=== PATIENT | female | born 1960 | race Asian ===

== ENCOUNTER → 2017-12-11 10:05 | Outpatient (CLI) | payer OTHER, SELFPAY ==
[2017-12-11 14:31] VITALS: BMI 35.4
== END ==
PROVIDERS: PCP Physician Assistant; Visit Provider Physician Assistant
DX: E66.9 Obesity, unspecified (principal); Z68.35 Body mass index [BMI] 35.0-35.9, adult
CPT/HCPCS: 97802

== ENCOUNTER → 2017-12-25 09:59 | Outpatient (CLI) | payer OTHER, SELFPAY ==
--- NOTE | 2017-12-25 11:50 | DIET.PN ---
Addendum entered by Elva Scanlon 02/11/18 10:39: Dx: Obesity, HTN, hyperlipidemia Original Note: Met for 1st F/U consultation Reports she has cut starchy foods - rice, taro, vegs -in half as suggested, and cut out all sweets, breads, rolls. Eating more non-starchy vegs. Substituted bananas for fresh pineapple and has a couple slices with each meal. Continues to monitor steps. Last week reached 10,000 to 19,000 steps 6 times with one low day at 4990 steps. Does sometimes feel unsatisfied after a meal and last week ate banana and an apple after dinner; once visited [employer] and had a small Frostie - then felt guilty. Is concerned about having family visit this weekend as they want to dine out at [employer]. Weight: 171.25# (4.5 # loss) Assessment: Pt making good progress. Has followed through with suggested changes to food choices and portions as well as increased physical activity. Losing at approx 2#/week, which is perfect. Intervention: Provided feedback on food choices over last 2 weeks. Provided ed on portion control for fruit and starchy food. Brainstormed ideas for successful family dinner out this weekend, including going to [employer] ahead of time to look over menu and decide what to order or choosing a different restaurant. Goals: Continue to monitor steps: goal of 10,000-15,000 5-6 times/week Continue to limits carbs/starchy foods Implement dining out strategies F/U 2 weeks
== END ==
PROVIDERS: PCP Physician Assistant; Visit Provider Physician Assistant
DX: E66.9 Obesity, unspecified (principal); I10 Essential (primary) hypertension; E78.5 Hyperlipidemia, unspecified
CPT/HCPCS: 97803

== ENCOUNTER → 2018-01-07 14:52 | Outpatient (CLI) | payer OTHER, SELFPAY ==
--- NOTE | 2018-01-07 15:58 | DIET.PN ---
Met for 2nd f/u consult Regine states last week was very bad r/t family visiting for 3 days with lots of eating and drinking, though she only drank one Dulce hard lemonade per day she still felt guilty. Did not exercise during this time and states no one would walk with her, though did not invite them. Continued to eat poorly after family left until today. Today started walking again and eating more conscientiously WEIGHT: 170 lb (my scale) ASSESSMENT: Pt feeling guilty re; going off plan during family visit. Was very evasive when trying to discuss events that led to poor choices and obviously very down on herself. Was surprized still lost approx 1 lb, though disappointed it wasn't 4 lbs again (2 lb/week goal) INTERVENTION: Provided education on strategies for keeping on track during social events and the importance of not berating one's self as it tends to prolong the binge of poor eating and not exercising: Mistakes are not mistakes if a lesson is learned. Provided ed on carb portions; measuring foods GOAL: return to step goals of 10,000 - 15,000 per day X 5-6X/wk Limit high carb/starchy foods. Pt wanted to start measuring. f/u 2 weeks
== END ==
PROVIDERS: PCP Physician Assistant; Visit Provider Physician Assistant
DX: E66.9 Obesity, unspecified (principal); I10 Essential (primary) hypertension; E78.5 Hyperlipidemia, unspecified
CPT/HCPCS: 97803

== ENCOUNTER → 2018-01-22 10:57 | Outpatient (CLI) | payer OTHER, SELFPAY ==
--- NOTE | 2018-01-22 12:02 | DIET.PN ---
Met for 3rd f/u States she is still struggling even with family being gone now. Has a lot of sodas left over from visit and has been drinking sugared soda as well as Frappacinos, as these are cold and refreshing when comes in from working outside. Also finding it more difficult reaching steps goal because she has so much yard work - has large yard with many plants. WEIGHT: 169# (down from 171.25 last visit; down 1 # from initial wt) ASSESSMENT: Making many excuses. Has lost 1.25# in 4 weeks; slow loss. Continues to decrease portions of meals, especially starchy foods and fruit. Adding in sugared beverages is a detriment to wt loss success. Even though steps are not as high as previous, continues to get in approx 10-12,000 daily and doing physical work in yard. INTERVENTION: Provided education on non-calorie cold beverages to substitute for sugared ones and the difference in metabolizing liquids carbs vs solid carbs. Strongly encouraged to get sugared beverages out of sight - save for another social event. Provided education on sugar subs (saccharin, aspartame, etc) vs stevia (natural plant) as she was afraid to use stevia. Suggested to try stair climbing for more intense work-out/steps GOALS: Sub non-caloried beverages for sugared ones Step: 10-12,000 steps daily Pt hopes to lose 3-6# by next meeting (3 weeks)
== END ==
PROVIDERS: PCP Physician Assistant; Visit Provider Physician Assistant
DX: E66.9 Obesity, unspecified (principal); I10 Essential (primary) hypertension; E78.5 Hyperlipidemia, unspecified
CPT/HCPCS: 97803

== ENCOUNTER → 2018-01-29 14:32 | Outpatient (CLI) | payer OTHER, SELFPAY ==
--- NOTE | 2018-01-29 | DI.MG.S_ITS ---
BILATERAL DIGITAL SCREENING MAMMOGRAM 3D/2D WITH CAD: 01/29/2018 CLINICAL: Routine screening. Family history of breast cancer. Comparison is made to exams dated: 12/07/2015 mammogram, 10/14/2014 mammogram, and 08/07/2012 mammogram - [facility]. The tissue of both breasts is heterogeneously dense. This may lower the sensitivity of mammography. Current study was also evaluated with a Computer Aided Detection (CAD) system. There is a benign calcification in the right breast. No significant masses, calcifications, or other findings are seen in either breast. There has been no significant interval change. IMPRESSION: BENIGN There is no mammographic evidence of malignancy. A 1 year screening mammogram is recommended. NOTE: For mammograms, a report in lay terms will be sent to the patient. Approximately 15% of breast malignancies will not be visualized mammographically. In the management of a palpable breast mass, a negative mammogram must not discourage biopsy of a clinically suspicious lesion. Electronically Signed By: Hyun ernst/cleopatra:01/29/2018 17:31:35 letter sent: Normal Exam ACR BI-RADS Category 2: Benign Finding(s) 3342F
== END ==
PROVIDERS: PCP Physician Assistant; Visit Provider Physician Assistant
DX: Z12.31 Encounter for screening mammogram for malignant neoplasm of breast (principal); E28.39 Other primary ovarian failure
CPT/HCPCS: 77063; 77067; 77080

== ENCOUNTER → 2018-02-12 14:16 | Outpatient (CLI) | payer OTHER, SELFPAY ==
--- NOTE | 2018-02-12 15:11 | DIET.PN ---
Met for f/u Is pleased to announce she bought a new shirt this week - a medium size instead of large. Needing smaller pants too. Has nearly completely gotten rid of rice in diet; substituting kale and other vegies. Continues to work at keeping exercise up, but has difficulty on work days meeting step goals as has to spend so much time taking care of garden this time of year. Had a birthday splurge with ice cream cake, but got back on track immediately. 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 Loser clothing suggests losing fat. Has more energy and feeling better - not craving sugar anymore. The [employer] code diet appears to advocate healthful fats and whole foods, so generally appears sound, though no details are available without purchase of books. INTERVENTION: Encouraged to continue current plan; keep exercise up as much as able; perservere, get back on track when strays. PLAN: F/u 5-6 weeks. Next wt goal 155#
== END ==
PROVIDERS: PCP Physician Assistant; Visit Provider Physician Assistant
DX: E66.9 Obesity, unspecified (principal); I10 Essential (primary) hypertension; E78.5 Hyperlipidemia, unspecified
CPT/HCPCS: 97803

== ENCOUNTER → 2018-03-19 10:55 | Outpatient (CLI) | payer OTHER, SELFPAY ==
--- NOTE | 2018-03-19 14:45 | DIET.PN ---
Regine is somewhat discouraged today. Has not made good progress since last visit. Attributes this to a few things: fitbit broke and felt lost; lost focus, started eating more starchy foods - spaghetti, was eating sugar free candy - only very small amount, but feels the sugar substitute used to kaya candy caused inflammation that affected knee. DX: Obesity, HTN, hyperlipidemia WT: 166.5# ASSESSMENT: Wt up 08/07# since last visit 1 mo ago. Appears to be comfort eating r/t knee pain and slipped back into old habits. Appears ready to re-start INTERVENTION: Provided support for starting again w/tracking intake; tracking steps (has new fitbit). Plans to start going to base gym again- discussed type of classes that may benefit without causing big strain on knees. Strongly encouraged to get off the starchy foods again. Will f/u 1 mo
== END ==
PROVIDERS: PCP Physician Assistant; Visit Provider Physician Assistant
DX: E66.9 Obesity, unspecified (principal); I10 Essential (primary) hypertension; E78.5 Hyperlipidemia, unspecified
CPT/HCPCS: 97803

== ENCOUNTER → 2018-04-24 15:00 | Outpatient (CLI) | payer OTHER, SELFPAY | PROVIDERS: PCP Physician Assistant | DX: Z23 Encounter for immunization (principal) | CPT/HCPCS: 90471; 90686 ==

== ENCOUNTER → 2018-04-30 14:54 | Outpatient (CLI) | payer OTHER, SELFPAY ==
--- NOTE | 2018-04-30 15:57 | DIET.PN ---
Met for 7th consultation Reports lost motivation because lost a friend to a stroke this month. The friend worked w/spouse and she knows family. Having a rough time dealing with it. Stopped walking and eating well. DX: obesity, HTN, hyperlipidemia WT 168# up from last vist by 3#; still down from initial visit by 7# ASSESSMENT: Emotional eater. Having difficult time coping. Feels she's ready now to restart (again). STarted walking yesterday. Did get a new fitbit since last visit so can start using that again. INTERVENTION: Provided listening ear; suggested counseling if doesn't get over this depressive episode. Suggest using ayla for tracking food intake - I think pt needs more structure to keep with plan PLAN/GOAL: Tract steps again - 10,000-15,000/day goal Track PO intake - has MyFitnesspal on phone already. Set aside time for meditation//prayer/addressing issues that are bothering her (1/2hr?) and then move on w/day F/U 1 mo
== END ==
PROVIDERS: PCP Physician Assistant; Visit Provider Physician Assistant
DX: E66.9 Obesity, unspecified (principal); I10 Essential (primary) hypertension
CPT/HCPCS: 97803

== ENCOUNTER → 2018-06-02 09:50 | Outpatient (CLI) | payer OTHER, SELFPAY ==
--- NOTE | 2018-06-02 11:05 | DIET.PN ---
Met for 8th consultation. Regine brings in her phone wanting instructions on how to log into [employer]. Apparently her spouse registered for her but she hasn't been able to use it. Has not recorded intake at all. Were unable to log into [employer] pal, so tried Lose It meli, which she also already had. Spent 1/2 hour instructing on use. Gets frustrated and gives up easily. Discussed keeping a written log, but wants to try the meli now. Meli also connects to her Fitbit to track exercise. Weight: 167.5# (down about 1/2 #) Exercise: Walking, treadmill - 30min 5X/wk for last 4 weeks Food Intake: Back to eating white rice, still has sodas at home that temp her. Basically falling back into old habits. States she plans now to just eat turkey and salad. Assessment: Regine has not made good lifestyle changes. Continues to have a diet mentality. Has lost very little wt in last 3 months. Intervention: Strongly recommended pt change her attitude and committ to making lasting changes, getting rid of white rice, starchy foods and getting back to lean sources of protein and vegetables w/minimum of whole grains for starchy food choices. Plan: Track food intake on Lose It meli (to try for at least 2 weeks to get familiar before giving up) If tracking meli isn't working well, keep written food intake record Continue exercise 5X/wk - bump up to 1 hour per session.
== END ==
PROVIDERS: PCP Physician Assistant; Visit Provider Physician Assistant
DX: E66.9 Obesity, unspecified (principal)
CPT/HCPCS: 97803

== ENCOUNTER → 2018-07-09 09:57 | Outpatient (CLI) | payer OTHER, SELFPAY ==
--- NOTE | 2018-07-10 06:33 | DIET.PN ---
Met for f/u consultation. Regine is feeling very good about herself today; very postive and says she is back on track. Reports changing her attitude: realizes her insurance is paying for consultations to help her get healthier and she needs to respect that. Did well at and plans the same for [employer], emphasizing other aspects of the holidays besides food. For she volunteered at community gathering. For [employer] will do same and focus on giving to those in need. Not walking as much r/t cold weather, but doing exercise routines using [employer] videos. Most days is meeting steps goal of 10,000 to 15,000. Did not use phone ayla for tracking intake - just isn't a techy person. Wants to keep written record but doesn't have info on nutrients Dx: obesity, HTN, hyperlipidemia Wt 164.5# Assessment: Making progress again; has better attitude. Eating well; minimizing carbs/maximizing whole foods Intervention: REinforced the good work Regine is doing. Provided an exhange booklet as this provides calorie and carb info for many foods. Instructed in its use. Plan: Regine's goal is to lose another 8# by our next appt.
== END ==
PROVIDERS: PCP Physician Assistant; Visit Provider Physician Assistant
DX: E66.9 Obesity, unspecified (principal)
CPT/HCPCS: 97803

== ENCOUNTER → 2018-08-20 10:53 | Outpatient (CLI) | payer OTHER, SELFPAY ==
--- NOTE | 2018-08-21 09:46 | DIET.PN ---
Met for f/u on 08/20 - late note Regine injured her leg around the knee/calf so walking has been limited for a few weeks. It still hurts but improving. It sounds like a pulled muscle/tendon? As a result, states she has not eaten well. Asking how long do I need to keep a food record? Does it need to be 2 weeks? Forever? Kept food record for only about 2 weeks after our last meeting; forgot to bring records. Admits she was eating poorly during that time as well - too much rice and bread & this was before injuring her leg. Dx: Obesity, HTN, hyperlipidemia Wt: deffered Assessment: Pt has many excuses for difficulty following a healthy lifestyle. Review of current pattern of work and eating, pt has reverted to old habits - and not eating more than one proper meal as well as eating a lot of carbs. Intervention: confronted pt w/her lack of commitment. Pointed out that the food record is more an issue of commitment and accountability than just an exercise to please me and have been shown to be an effective tool. Emphasized it's up to Regine to make the choices. Suggested a somewhat extreme diet plan, using a keto template. This is to help regulate appetite and stave off carb cravings. Gave sample menu and outlined how that menu may fit into her schedule of eatinAM (after work): breakfast 1:30PM(after sleeping/before work): Dinner 10PM (while driving to work): Snack 2:00AM (at work): Lunch Plan: Food record, Use keto plan, F/U 1 mo
== END ==
PROVIDERS: PCP Physician Assistant; Visit Provider Physician Assistant
DX: E66.9 Obesity, unspecified (principal); I10 Essential (primary) hypertension; E78.5 Hyperlipidemia, unspecified
CPT/HCPCS: 97803

== ENCOUNTER → 2018-10-01 09:56 | Outpatient (CLI) | payer OTHER, SELFPAY ==
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
== END ==
PROVIDERS: PCP Physician Assistant; Visit Provider Physician Assistant
DX: E66.9 Obesity, unspecified (principal); I10 Essential (primary) hypertension; E78.5 Hyperlipidemia, unspecified
CPT/HCPCS: 97803

== ENCOUNTER → 2018-11-17 10:04 | Outpatient (CLI) | payer OTHER, SELFPAY ==
--- NOTE | 2018-11-17 10:43 | DIET.PN ---
Met for f/u consultation; may be final consult - pt not certain what date referral authorization ends. We've been meeting for 1 year and I suspect this is the last approve month. Regine reports she's exercising more again; knee is better. Working out (treadmill, etc) for approx 1 hour 5/week and tracking steps, with most days reaching 10,000 steps. Continues to eat a lot of non-starchy vegs, limits rice to 1 cup servings approx 4/week; avoiding breads and sweets. Does allow one sweet treat: small size bites of niurka covered dried sade: two/day. Continues to keep other sweets out of diet, including sodas. Reports feeling better; has more energy and is okay with maintaining wt but continuing to eat and exercise to be more healthy. O- Dx: obesity, HTN, hyperlipidemia Wt 167# Wt previous consult: 166.75# Assessment: Regine has learned a lot per her report; made good changes in lifestyle. Weight is maintaining, which is progress, as she was gaining prior to our consultations. Appears to have better control of emotional eating and how to re-gain control when getting off track of personal goals. Intervention: Reviewed what pt has learned and incorperated into lifestyle. Reinforced continuance of healthy lifestyle habits from here forward. Plan: May call for f/u if insurance still covering appts; otherwise, plans to continue eating well and exercising.
== END ==
PROVIDERS: PCP Physician Assistant; Visit Provider Physician Assistant
DX: E66.9 Obesity, unspecified (principal); I10 Essential (primary) hypertension; E78.5 Hyperlipidemia, unspecified
CPT/HCPCS: 97803

== ENCOUNTER → 2019-01-21 07:22 | Outpatient (CLI) | payer OTHER, SELFPAY ==
[2019-01-21 08:40] LABS: Alanine Aminotransferase 40 IU/L (9-52); Albumin 4.5 g/dL (3.5-5.0); Albumin Globulin Ratio 1.6 (1.0-2.8); Alkaline Phosphatase 70 U/L (38-126); Aspartate Aminotransferase 29 IU/L (14-36); Blood Urea Nitrogen 21 mg/dL (7-17); Calcium 10.1 mg/dL (8.4-10.2); Carbon Dioxide 30 mmol/L (22-32); Chloride 102 mmol/L (98-107); Cholesterol 189 mg/dL (140-199); Estimated Glomerular Filt Rate > 60.0 mL/min (>60); Globulin 2.8 g/dL (1.7-4.1); Glucose 103 mg/dL (80-110); HDL Cholesterol 49 mg/dL (40-60); HEMOLYSIS < 15 (0-50); LDL Cholesterol Calculated 117 mg/dL (<100); Potassium 4.3 mmol/L (3.4-5.1); Sodium 141 mmol/L (137-145); Total Protein 7.3 g/dL (6.3-8.2); Triglycerides 115 mg/dL (35-150)
[2019-01-21 09:03] LABS: Creatinine Urine Random 212.3 mg/dL
[2019-01-21 09:08] LABS: Microalbumi Creatinin Ratio Ur 8.9 ug/mg CR (<30); Microalbumin Urine Random 1.9 mg/dL (0-1.6)
== END ==
PROVIDERS: PCP Physician Assistant; Visit Provider Physician Assistant
DX: E78.5 Hyperlipidemia, unspecified (principal); I10 Essential (primary) hypertension
CPT/HCPCS: 36415; 80053; 80061; 82043; 82570

== ENCOUNTER → 2019-01-28 07:38 | Outpatient (CLI) | payer OTHER, SELFPAY ==
[2019-02-01 16:15] LABS: Fecal Immunochemical Test NOT DETECTED (NOT DETECTED)
== END ==
PROVIDERS: PCP Physician Assistant; Visit Provider Physician Assistant
DX: Z12.11 Encounter for screening for malignant neoplasm of colon (principal)
CPT/HCPCS: 82274

== ENCOUNTER 2019-04-24 09:11 | Emergency (ER) | payer OTHER, SELFPAY ==
[2019-04-24 09:35] VITALS: BP 172/86; PULSE 79; RESP 18; TEMP 36.7; O2SAT 98
[2019-04-24 09:37] VITALS: PULSE 80
--- NOTE | 2019-04-24 09:57 | ED.UPPEXIN ---
HPI - Extremity Injury (Upper) General Chief Complaint: Extremity Injury, Upper Stated Complaint: bit by something, hand swelling Time Seen by Provider: 04/24/19 09:17 Source: patient Mode of arrival: Ambulatory Limitations: no limitations History of Present Illness HPI narrative: 59-year-old female nonsmoker presents to the emergency department the chief complaint of an insect bite to her left ring finger this morning while working in the garden. She developed swelling, redness and pain which has worsened and now she cannot remove her wedding band. She denies any numbness or tingling. She has decreased range of motion secondary to pain and mechanical obstruction due to swelling. Patient denies any systemic findings such as tongue, lip or throat swelling nor any rash or difficulty with breathing MD complaint: injury to: left Onset (ago): hour(s) Other injuries: none Handedness: right Place: outdoors Severity: mild Relieving factors: none Exacerbating factors: none Context: other Associated symptoms: denies other symptoms Treatments prior to arrival: cold therapy Related Data Home Medications Medication Instructions Recorded Confirmed CA PANTOTHENATE/FOLIC ACID/VIT 1 tab PO QDAY #0 07/20/12 01/25/19 (MULTIVITAMIN) aspirin 81 mg PO QDAY #0 10/31/16 01/25/19 [GLUTATHIONE] 500 mg PO QDAY #0 11/06/17 01/25/19 Ocuvite 1 cap PO DAILY 01/25/19 01/25/19 ascorbate calcium (vitamin C) 500 500 mg PO DAILY PRN 01/25/19 01/25/19 mg tablet Previous Rx's Medication Instructions Recorded losartan 50 mg-hydrochlorothiazide 1 tab PO QDAY #90 tab 01/25/19 12.5 mg tablet pravastatin 40 mg tablet 40 mg PO HS #90 tab 01/25/19 Allergies Allergy/AdvReac Type Severity Reaction Status Date / Time amoxicillin [AMOXICILLIN] AdvReac Severe HIVES IN Unverified 01/25/19 09:02 CHEST & FACE azithromycin AdvReac Severe CHEST Unverified 01/25/19 09:02 PAIN, VOMITING, DIZZINESS clavulanic acid AdvReac Severe HIVES IN Unverified 01/25/19 09:02 [From AUGMENTIN] CHEST & FACE Penicillins [PENICILLINS] AdvReac Severe HIVES IN Unverified 01/25/19 09:02 CHEST & FACE hydrocodone AdvReac Intermediate NAUSEA AND Unverified 01/25/19 09:02 DIZZINESS tobramycin [TOBRAMYCIN] AdvReac Intermediate Cause eye Unverified 01/25/19 09:02 to be very red, inflammed and hard to open lisinopril AdvReac Mild DRY COUGH Unverified 01/25/19 09:02 Review of Systems Constitutional Constitutional: Denies chills, Denies fatigue, Denies fever(s), Denies frequent falls, Denies lethargy and Denies weakness Eyes Eyes: Denies change in vision, Denies eye discharge, Denies irritation and Denies loss of vision ENT Ears, Nose, Mouth, and Throat: Denies change in voice, Denies dizziness, Denies neck pain, Denies sore throat and Denies throat swelling Cardiovascular Cardiovascular: Denies chest pain, Denies irregular heart rhythm, Denies lightheadedness, Denies palpitations, Denies dyspnea, Denies dyspnea on exertion and Denies orthopnea Respiratory Respiratory: Denies cough, Denies dyspnea, Denies dyspnea on exertion and Denies wheezing Gastrointestinal Gastrointestinal: Denies abdominal pain, Denies change in bowel habits, Denies diarrhea, Denies nausea and Denies vomiting Genitourinary Genitourinary: Denies hematuria, Denies flank pain, Denies urinary incontinence and Denies urinary urgency Musculoskeletal Musculoskeletal: Denies back pain, Reports joint swelling, Reports limited range of motion, Denies muscle weakness, Denies neck pain, Denies numbness and Denies tingling Integumentary/Breasts Skin/Breast: Denies pruritus, Reports erythema, Denies rash, Reports skin pain, Reports skin swelling and Denies wounds Neurologic Neurologic: Denies behavioral changes, Denies confusion, Denies dizziness, Denies frequent falls, Denies loss of vision, Denies numbness, Denies tingling and Denies weakness Psychiatric Psychiatric: Denies anxiety, Denies behavioral changes, Denies confusion, Denies depression, Denies homicidal ideation and Denies suicidal ideation Endocrine Endocrine: Denies fatigue, Denies flushing and Denies palpitations Hematologic/Lymphatic Hematologic/Lymphatic: Denies easy bruising Allergic/Immunologic Allergic/Immunologic: Denies urticaria, Denies throat swelling and Denies wheezing PFSH Surgical History Status post breast reduction Status post delivery Family History (Updated 09/18/15 @ 00:00 by Conversion Provider) Mother Hypertension Social History Smoking Status: Never smoker second hand exposure: No alcohol intake: current (a couple of times a year on rare occasions.) substance use type: does not use Family History Mother Hypertension Social History Smoking Status: Never smoker second hand exposure: No alcohol intake: current (a couple of times a year on rare occasions.) substance use type: does not use Exam Narrative Exam Narrative: GEN: AOx3 and in mild distress EYES: Pupils are equal, round, and reactive to light and accommodation. Extraoccular muscles are intact bilaterally. There is no subconjunctival hemorrhage or exudate. ENT: No tongue, lip or throat swelling CHEST: Lungs are clear to auscultation bilaterally and free of wheezes, rales, or rhonchi. Heart rate is regular rhythm, there are no murmurs, clicks, rubs, or gallops. There is no chest wall tenderness. ABD: Abdomen is soft and nontender. There is no guarding or rebound. Bowel sounds are normal in all 4 quadrants. There is no mass or organomegaly. EXT: Left ring finger is edematous and erythematous with good cap refill and sensation. Unable to slide ring off. Nursing to cut ring SKIN: Warm, pink, and dry. No erythema or rash Initial Vital Signs Initial Vital Signs: Vital Signs Temperature 98.0 F 04/24/19 09:35 Pulse Rate 79 04/24/19 09:35 Respiratory Rate 18 04/24/19 09:35 Blood Pressure 172/86 H 04/24/19 09:35 Pulse Oximetry 98 04/24/19 09:35 Course Vital Signs Vital signs: Vital Signs - 8 hr 04/24/19 09:35 04/24/19 09:37 Temperature 98.0 F Pulse Rate 79 Pulse Rate [Left Radial] 80 Respiratory Rate 18 Blood Pressure 172/86 H Pulse Oximetry 98 Discharge Plan Departure Patient Disposition: Home Clinical Impression: Injury of left ring finger Qualifiers: Encounter type: initial encounter Qualified Code(s): S69.92XA - Unspecified injury of left wrist, hand and finger(s), initial encounter Insect bite Qualifiers: Encounter type: initial encounter Site of insect bite: finger Finger: ring finger Laterality: right Qualified Code(s): S60.464A - Insect bite (nonvenomous) of right ring finger, initial encounter Discharge Date/Time: 04/24/19 10:18 Instructions: DI for Insect Bites and Stings Activity Restrictions/Additional Instructions: *You have been diagnosed with [insect bite with local reaction and swelling to ring finger with ring removal] *What to do: *Take medications as directed: Tylenol or Motrin for aches and pains *Follow up with your primary care provider in 2-3 days, call for an appointment. Let them know you were seen in the Emergency Department and that we ask that you be seen in follow up *Return to ER if you should have any new, worsening or concerning symptoms Prescriptions: No Action CA PANTOTHENATE/FOLIC ACID/VIT (MULTIVITAMIN) 1 tab PO QDAY Qty: 0 RF: 0 aspirin 81 MG tablet,delayed release (DR/EC) 81 mg PO QDAY Qty: 0 RF: 0 [GLUTATHIONE] 500 mg PO QDAY Qty: 0 RF: 0 ascorbate calcium (vitamin C) 500 mg tablet 500 mg PO DAILY PRNRF: 0 Ocuvite 1 cap PO DAILY RF: 0 losartan-hydrochlorothiazide [Hyzaar] 50-12.5 mg tablet 1 tab PO QDAY Qty: 90 RF: 3 pravastatin 40 mg tablet 40 mg PO HS Qty: 90 RF: 3 Referrals: Drea Leroy PA-C [Primary Care Provider] -
== END 2019-04-24 10:18 | disposition home or self-care (01) ==
PROVIDERS: Emergency Provider Emergency Medicine; PCP Physician Assistant
DX: S60.465A Insect bite (nonvenomous) of left ring finger, initial encounter (principal)
CPT/HCPCS: 99282

== ENCOUNTER → 2019-05-20 12:39 | Outpatient (CLI) | payer OTHER, SELFPAY | PROVIDERS: PCP Physician Assistant | DX: Z23 Encounter for immunization (principal) | CPT/HCPCS: 90471; 90686 ==

== ENCOUNTER → 2020-05-09 18:56 | Outpatient (CLI) | payer OTHER, SELFPAY | PROVIDERS: PCP Physician Assistant; Referring Provider Internal Medicine; Visit Provider Internal Medicine | DX: Z23 Encounter for immunization (principal) | CPT/HCPCS: 90471; 90686 ==

== ENCOUNTER 2024-03-18 12:42 | Emergency (ER) | payer OTHER, MEDICARE, SELFPAY ==
[2024-03-18] VITALS (38 sets, daily range): BP systolic 170–235; BP diastolic 70–116; PULSE 56–104; RESP 11–31; TEMP 36.6; O2SAT 93–100; BMI 33.0
--- NOTE | 2024-03-18 12:49 | DI.CT.S_ITS ---
PROCEDURE: CT STROKE INDICATIONS: code stroke TECHNIQUE: Noncontrast 4.5 mm thick angled axial sections acquired from the foramen magnum to the vertex, with coronal reformats. For radiation dose reduction, the following was used: automated exposure control, adjustment of mA and/or kV according to patient size. COMPARISON: None. FINDINGS: Image quality: Diagnostic. CSF spaces: Basal cisterns are patent. No extra-axial fluid collections. The ventricles are symmetric in size and shape. Brain: No intracranial bleeds or masses. There is cerebral volume loss for age, with resultant ventricular and sulcal prominence. There are periventricular and deep white matter chronic small vessel ischemic changes. There is intracranial internal carotid artery atherosclerosis. Skull and face: Calvarium and visualized facial bones appear intact, without suspicious lesions. Sinuses: Visualized sinuses and mastoids are clear. IMPRESSION: No acute intracranial pathology. Comment: Findings were discussed with Dr. Hammond on 03/18/2024 at 1311 hours. This study fulfills neurological imaging criteria for inclusion or exclusion of acute stroke therapies based on available published neurological guidelines. Dictated by: Tahir Romero M.D. on 03/18/2024 at 13:01 Approved by: Tahir Romero M.D. on 03/18/2024 at 13:02
--- NOTE | 2024-03-18 12:50 | DI.CT.S_ITS ---
PROCEDURE: CT ANGIO HEAD AND NECK INDICATIONS: code stroke TECHNIQUE: After the administration of intravenous contrast, 1 mm thick sections acquired from the aortic arch through the [place] of [place]. 3-dimensional kikbcbz-zqufpljvm-fqjysnhbsp (MIP) and/or volume rendering reformats were acquired of the central intracranial vasculature and neck separately. For radiation dose reduction, the following was used: automated exposure control, adjustment of mA and/or kV according to patient size. COMPARISON: [facility], CT, CT STROKE, 03/18/2024, 12:53. FINDINGS: Image quality: Diagnostic. BRAIN: CSF spaces: Ventricles are normal in size and shape. Basal cisterns are patent. No extra-axial fluid collections. Brain: Accompanying CT head is unremarkable. Skull and face: Calvarium and facial bones appear intact, without suspicious lesions. Orbits appear normal. Sinuses: Sinuses and mastoids are clear. HEAD CT ANGIOGRAPHY: Anterior circulation: Intracranial internal carotid arteries are normal in size and flow. The flow within the paired anterior cerebral arteries is normal and symmetric. The flow within the middle cerebral arteries is normal and symmetric. The anterior communicating artery is seen. No aneurysms are seen. Posterior circulation: Visualized portions of the vertebral arteries demonstrate normal caliber, and join to form a normal appearing basilar artery. Flow within the posterior cerebral arteries is normal and symmetric. No aneurysms are seen. NECK CT ANGIOGRAPHY: Carotid system: The great vessels demonstrate a conventional anatomy as they arise from the aortic arch. The origins of the common carotid arteries appear patent. The common carotid arteries demonstrate normal caliber and courses. The bifurcation regions are both widely patent. The internal carotid arteries demonstrate normal calibers and courses. Posterior circulation: The origins of the vertebral arteries both appear widely patent. The more superior extracranial portions of both vertebral arteries also demonstrate normal courses and calibers. They join to form a normal appearing basilar artery. Soft tissues: Visualized neck soft tissues demonstrate no suspicious abnormalities. Question small pulmonary embolus, left basilar pulmonary artery, most inferior image, image 333 of series 4. There is also question pulmonary embolus in the lingular pulmonary artery. Reference image 330 of series 4. Bones: No suspicious bony lesions. Visualized cervical spine appears normally aligned. IMPRESSION: No significant intracranial arterial abnormality is seen. No significant abnormality is seen within the arteries of the neck. Question small peripheral left-sided pulmonary emboli Comment: Findings were discussed with Dr. Hammond at the time of study dictation on from 03/18/2024 at 1410 hours. Any quantitative measurements of stenosis were performed using NASCET criteria. Dictated by: Tahir Romero M.D. on 03/18/2024 at 14:06 Approved by: Tahir Romero M.D. on 03/18/2024 at 14:14
--- NOTE | 2024-03-18 12:50 | EKG_ITS ---
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
[2024-03-18 13:03] LABS: Add Manual Diff / Slide Review NO; Basophils Absolute Auto 100 /uL (0-100); Basophils Percent Auto 0.6 % (0-2); Eosinophils Absolute Auto 400 /uL (0-450); Eosinophils Percent Auto 4.4 % (2-4); Hematocrit 40.6 % (36-46); Hemoglobin 13.4 g/dL (12.0-16.0); Lymphocytes Absolute Auto 3700 /uL (1100-4500); Lymphocytes Percent Auto 39.7 % (25-40); Mean Corpuscular HGB Conc 33.1 % (30-36); Mean Corpuscular Hemoglobin 28.4 PG (26-34); Mean Corpuscular Volume 85.7 fL (80-100); Monocytes Absolute Auto 500 /uL (0-900); Monocytes Percent Auto 5.8 % (3-14); Neutrophils Absolute Auto 4600 /uL (1500-7000); Neutrophils Percent Auto 49.5 % (50-75); Platelet Count 313 X10^3/uL (150-400); Red Blood Cell Count 4.74 X10^6/uL (4.0-5.2); Red Cell Distribution Width 14.2 % (11.6-14.8); White Blood Cell Count 9.3 X10^3/uL (4.5-11.0)
[2024-03-18] MEDS: LABETALOL 20 MG/4 ML SYRINGE 10 MG IV (13:05)
[2024-03-18] MEDS: SODIUM CHLORIDE 0.9% 1,000 ML 125 ML IV (13:06)
[2024-03-18 13:10] LABS: INR 0.9 (0.9-1.3); Prothrombin Time 10.6 SECONDS (9.4-12.5)
--- NOTE | 2024-03-18 13:11 | ED_ITS ---
HPI - Neuro Symptoms/Deficit General Chief Complaint: Neuro Symptoms/Deficit Stated Complaint: feels like she's having stroke Time Seen by Provider: 03/18/24 12:48 Source: patient Mode of arrival: Ambulatory History of Present Illness HPI Narrative: 64-year-old female history of high blood pressure arrived by private vehicle for evaluation of feeling anxious, palpitations, dry mouth, tingling on her tongue and potentially some issues with dilating phone number on her phone. States she was at her normal state of health. She did work last evening so she has been awake for approximately 20 hours. She went to the bank. She was driving home from the bank she has sudden onset of symptoms at approximately 1.5 hours prior to arrival here in the ER. She states she did feel anxious at the time of the onset of the symptoms. She feels less anxious now. She feels like her palpitations have improved as well. She does have a history of high blood pressure. States her blood pressure normally runs in the 130s at home. Not on anticoagulation. On Anticoagulants: No (asa) Related Data Home Medications Medication Instructions Recorded Confirmed CA PANTOTHENATE/FOLIC ACID/VIT 1 tab PO QDAY ##0 07/20/12 01/25/19 (MULTIVITAMIN) aspirin 81 mg tablet,delayed 81 mg PO QDAY ##0 10/31/16 01/25/19 release [GLUTATHIONE] 500 mg PO QDAY ##0 11/06/17 01/25/19 Ocuvite 1 cap PO DAILY 01/25/19 01/25/19 ascorbate calcium (vitamin C) 500 500 mg PO DAILY PRN 01/25/19 01/25/19 mg tablet Previous Rx's Medication Instructions Recorded losartan 50 mg-hydrochlorothiazide 1 tab PO QDAY #90 tabs 01/25/19 12.5 mg tablet (Hyzaar) pravastatin 40 mg tablet 40 mg PO HS #90 tabs 01/25/19 hydrochlorothiazide 12.5 mg tablet 12.5 mg PO DAILY #90 tabs 07/30/19 losartan 50 mg tablet 50 mg PO DAILY #90 tabs 07/30/19 Allergies Allergy/AdvReac Type Severity Reaction Status Date / Time amoxicillin [AMOXICILLIN] AdvReac Severe HIVES IN Verified 03/18/24 12:55 CHEST & FACE azithromycin AdvReac Severe CHEST Verified 03/18/24 12:55 PAIN, VOMITING, DIZZINESS clavulanic acid AdvReac Severe HIVES IN Verified 03/18/24 12:55 [From AUGMENTIN] CHEST & FACE Penicillins [PENICILLINS] AdvReac Severe HIVES IN Verified 03/18/24 12:55 CHEST & FACE hydrocodone AdvReac Intermediate NAUSEA AND Verified 03/18/24 12:55 DIZZINESS tobramycin [TOBRAMYCIN] AdvReac Intermediate Cause eye Verified 03/18/24 12:55 to be very red, inflammed and hard to open lisinopril AdvReac Mild DRY COUGH Verified 03/18/24 12:55 Review of Systems Review of Systems ROS Unobtainable: All systems reviewed & are unremarkable except as noted in HPI and below Hematologic/Lymphatic On Anticoagulants: No (asa) Patient History Surgical History Status post breast reduction Status post delivery Family History Mother Hypertension Social History Smoking Status: Never smoker second hand exposure: No alcohol intake: current (a couple of times a year on rare occasions.) substance use type: does not use Smoking Status: Never smoker alcohol intake frequency: other Substance Use Type: does not use Exam Initial Vital Signs Initial Vital Signs: Vital Signs Temperature 97.8 F 03/18/24 12:42 Pulse Rate 104 H 03/18/24 12:42 Respiratory Rate 15 03/18/24 12:42 Blood Pressure 232/100 H 03/18/24 12:42 Pulse Oximetry 99 03/18/24 12:42 Oxygen Delivery Method Room Air 03/18/24 12:42 Const General: cooperative, comfortable and No ill appearing [facility] Head: normal to inspection and normocephalic Resp Effort & Inspection: normal respiratory effort Auscultation: clear to auscultation bilaterally Cardio Rate: regular rate Rhythm: regular rhythm GI Inspection: normal to inspection and non-distended Palpation: soft, No firm and No tender Neuro General: patient alert, patient awake, patient oriented x3 and moves all extremities Cranial Nerves: CN's II-XI intact bilaterally Cognition: normal cognition Speech: speech normal Motor: muscle tone normal throughout Sensory Exam: no sensory deficits noted Extrem General: capillary refill normal Scores GCS Tank coma scale eye opening: Spontaneous [place] coma scale verbal response: Orientated Tank coma scale motor response: Obey commands Tank coma scale total score: 15 NIH Stroke Scale Level of Conciousness: Alert, keenly responsive Ask month/age: Answers both questions correctly. Open/close eyes, close hand: Performs both tasks correctly Best gaze horizontal: Normal Visual josue: No visual loss Facial palsy: Normal symetrical movement Left arm drift: No drift for full 10 sec Right arm drift: No drift for full 10 sec Left leg drift: No drift for full 5 sec Right leg drift: No drift for full 5 sec Limb ataxia: Absent Sensory on face/arms/legs: Normal, no sensory loss Best language: No aphasia, normal Dysarthria: Normal Extinction or inattention: No abnormality Total NIH Stroke scale score: 0 Course Orders Ordered: ED Orders 03/18/24 12:49 CT Stroke Stat 03/18/24 12:50 CT angio head and neck Stat Complete Blood Count AUTO DIFF Stat Comprehensive Metabolic Panel Stat Ethanol (ETOH) Stat Lipase Stat Magnesium Stat PTT Partial Thromboplastin Riccardo Stat Prothrombin Time INR Stat Troponin & CK Cardiac Panel Stat EKG-12 Lead Stat 03/18/24 14:19 Urine Microscopic Stat 03/18/24 16:06 CT angio chest PE protocol Stat Sodium Chloride (Normal Saline 0.9%) 1,000 mls @ 125 mls/hr IV CONT BRY Last Admin: 03/18/24 13:06 Dose: 125 mls/hr Documented By: YANNICK Discontinued Medications Acetaminophen (Acetaminophen 325 Mg Tablet) 650 mg PO NOW ONE Stop: 03/18/24 16:07 Last Admin: 03/18/24 16:42 Dose: 650 mg Documented By: MARISA Amlodipine Besylate (Amlodipine 5 Mg Tablet) 10 mg PO NOW ONE Stop: 03/18/24 18:32 Labetalol HCl (Labetalol 20 Mg/4 Ml Syringe) 10 mg IV NOW ONE Stop: 03/18/24 12:57 Last Admin: 03/18/24 13:05 Dose: 10 mg Documented By: YANNICK Vital Signs Vital signs: Vital Signs - 8 hr 03/18/24 12:42 03/18/24 12:46 03/18/24 12:47 Temperature 97.8 F Pulse Rate 104 H 104 H Respiratory Rate 15 11 L Blood Pressure 232/100 H Pulse Oximetry 99 93 97 Oxygen Delivery Method Room Air 03/18/24 12:47 03/18/24 13:01 03/18/24 13:02 Temperature Pulse Rate 95 H Respiratory Rate 17 Blood Pressure 232/108 H 201/86 H Pulse Oximetry 100 Oxygen Delivery Method 03/18/24 13:02 03/18/24 13:05 03/18/24 13:16 Temperature Pulse Rate 95 H 93 H Respiratory Rate 22 Blood Pressure 201/86 H 201/84 H Pulse Oximetry 98 Oxygen Delivery Method 03/18/24 13:16 03/18/24 13:25 03/18/24 13:26 Temperature Pulse Rate 68 65 Respiratory Rate 22 28 H Blood Pressure 171/72 H Pulse Oximetry 98 99 Oxygen Delivery Method 03/18/24 13:26 03/18/24 13:30 03/18/24 13:30 Temperature Pulse Rate 64 Respiratory Rate 25 H Blood Pressure 201/83 H 197/85 H Pulse Oximetry 99 Oxygen Delivery Method 03/18/24 13:45 03/18/24 13:45 03/18/24 14:00 Temperature Pulse Rate 62 Respiratory Rate 26 H Blood Pressure 219/91 H 196/86 H Pulse Oximetry 98 Oxygen Delivery Method 03/18/24 14:00 03/18/24 14:11 03/18/24 14:19 Temperature Pulse Rate 61 Respiratory Rate 23 Blood Pressure 196/86 H 202/84 H Pulse Oximetry 98 Oxygen Delivery Method 03/18/24 14:19 03/18/24 14:30 03/18/24 14:30 Temperature Pulse Rate 66 61 Respiratory Rate 25 H 28 H Blood Pressure 194/70 H Pulse Oximetry 98 98 Oxygen Delivery Method 03/18/24 14:45 03/18/24 14:45 03/18/24 15:00 Temperature Pulse Rate 63 67 Respiratory Rate 27 H Blood Pressure 188/84 H Pulse Oximetry 98 99 Oxygen Delivery Method 03/18/24 15:01 03/18/24 15:01 03/18/24 16:07 Temperature Pulse Rate 70 Respiratory Rate 26 H Blood Pressure 226/116 H Pulse Oximetry 99 98 Oxygen Delivery Method 03/18/24 16:29 03/18/24 16:29 03/18/24 16:30 Temperature Pulse Rate 64 64 Respiratory Rate 31 H 24 Blood Pressure 235/103 H Pulse Oximetry 98 99 Oxygen Delivery Method 03/18/24 16:42 03/18/24 16:42 03/18/24 16:45 Temperature Pulse Rate 61 Respiratory Rate 25 H Blood Pressure 220/95 H 211/81 H Pulse Oximetry 99 Oxygen Delivery Method 03/18/24 16:45 03/18/24 17:00 03/18/24 17:01 Temperature Pulse Rate 60 59 L Respiratory Rate 14 18 Blood Pressure 215/81 H Pulse Oximetry 98 98 Oxygen Delivery Method 03/18/24 17:01 03/18/24 17:16 03/18/24 17:16 Temperature Pulse Rate 60 61 Respiratory Rate 19 23 Blood Pressure 208/85 H Pulse Oximetry 100 97 Oxygen Delivery Method 03/18/24 17:30 03/18/24 17:30 Temperature Pulse Rate 60 Respiratory Rate 26 H Blood Pressure 201/74 H Pulse Oximetry 98 Oxygen Delivery Method MDM - Neuro Symptoms/Deficit Lab Data Attestation: I reviewed the patient's lab results. 03/18/24 12:50 03/18/24 12:50 Labs: Lab Results 03/18/24 03/18/24 Range/Units 12:50 14:19 WBC 9.3 (4.5-11.0) X10^3/uL RBC 4.74 (4.0-5.2) X10^6/uL Hgb 13.4 (12.0-16.0) g/dL Hct 40.6 (36-46) % MCV 85.7 (80-100) fL MCH 28.4 (26-34) PG MCHC 33.1 (30-36) % RDW 14.2 (11.6-14.8) % Plt Count 313 (150-400) X10^3/uL Neut % (Auto) 49.5 L (50-75) % Lymph % (Auto) 39.7 (25-40) % [place] % (Auto) 5.8 (3-14) % Eos % (Auto) 4.4 H (2-4) % Baso % (Auto) 0.6 (0-2) % Neut # (Auto) 4600 (3530-6475) /uL Lymph # (Auto) 3700 (6338-2601) /uL [place] # (Auto) 500 (0-900) /uL Eos # (Auto) 400 (0-450) /uL Baso # (Auto) 100 (0-100) /uL PT 10.6 (9.4-12.5) SECONDS INR 0.9 (0.9-1.3) APTT 39 H (25.1-36.5) SECONDS Sodium 139 (137-145) mmol/L Potassium 3.5 (3.4-5.1) mmol/L Chloride 106 (98-107) mmol/L Carbon Dioxide 22 (22-32) mmol/L BUN 21 H (7-17) mg/dL Creatinine 0.82 (0.52-1.04) mg/dL Estimated GFR > 60 (>60) mL/min BUN/Creatinine Ratio 25.6 H (6-22) Glucose 154 H (80-110) mg/dL Calcium 9.4 (8.4-10.2) mg/dL Magnesium 2.2 (1.6-2.3) mg/dL Total Bilirubin 0.9 (0.2-1.3) mg/dL AST 26 (14-36) IU/L ALT 23 (<35) IU/L Alkaline Phosphatase 75 (38-126) U/L Total Creatine Kinase 94 (30-135) U/L Troponin I < 0.012 (0.01-0.034) ng/mL Total Protein 7.6 (6.3-8.2) g/dL Albumin 4.6 (3.5-5.0) g/dL Globulin 3.0 (1.7-4.1) g/dL Albumin/Globulin Ratio 1.5 (1.0-2.8) Lipase 154 (23-300) U/L Urine RBC None seen (0-5/HPF) Urine WBC 0-1/hpf (0-5/HPF) Ur Squamous Epith Cells None seen (0-5/HPF) Urine Bacteria None seen (None) Ur Culture Indicated? Cult not indicated Vol Urine Centrifuged 10ml (spun) Ethyl Alcohol < 10 ( - 10) mg/dL Point of Care Testing Glucose POC 139 Urine Dip Bedside Urine Glucose Negative Bedside Urine Bilirubin - Negative Bedside Urine Ketone - Negative Urine Specific [place] 1.010 Bedside Urine Occult Blood - Negative Bedside Urine pH 7.0 Bedside Urine Protein - Negative Bedside Urine Urobilinogen - Negative Bedside Urine Nitrite - Negative Bedside Urine Leukocytes +/- [address] scan - head: Radiologist's Impression: PROCEDURE: CT STROKE INDICATIONS: code stroke TECHNIQUE: Noncontrast 4.5 mm thick angled axial sections acquired from the foramen magnum to the vertex, with coronal reformats. For radiation dose reduction, the following was used: automated exposure control, adjustment of mA and/or kV according to patient size. COMPARISON: None. FINDINGS: Image quality: Diagnostic. CSF spaces: Basal cisterns are patent. No extra-axial fluid collections. The ventricles are symmetric in size and shape. Brain: No intracranial bleeds or masses. There is cerebral volume loss for age, with resultant ventricular and sulcal prominence. There are periventricular and deep white matter chronic small vessel ischemic changes. There is intracranial internal carotid artery atherosclerosis. Skull and face: Calvarium and visualized facial bones appear intact, without suspicious lesions. Sinuses: Visualized sinuses and mastoids are clear. IMPRESSION: No acute intracranial pathology. Comment: Findings were discussed with Dr. Hammond on 03/18/2024 at 1311 hours. This study fulfills neurological imaging criteria for inclusion or exclusion of acute stroke therapies based on available published neurological guidelines. CTA - brain/neck: Radiologist's Impression: PROCEDURE: CT ANGIO HEAD AND NECK INDICATIONS: code stroke TECHNIQUE: After the administration of intravenous contrast, 1 mm thick sections acquired from the aortic arch through the [place] of [place]. 3-dimensional ofbzdms-bntyxincm-xvkdywfpoa (MIP) and/or volume rendering reformats were acquired of the central intracranial vasculature and neck separately. For radiation dose reduction, the following was used: automated exposure control, adjustment of mA and/or kV according to patient size. COMPARISON: [facility], CT, CT STROKE, 03/18/2024, 12:53. FINDINGS: Image quality: Diagnostic. BRAIN: CSF spaces: Ventricles are normal in size and shape. Basal cisterns are patent. No extra-axial fluid collections. Brain: Accompanying CT head is unremarkable. Skull and face: Calvarium and facial bones appear intact, without suspicious lesions. Orbits appear normal. Sinuses: Sinuses and mastoids are clear. HEAD CT ANGIOGRAPHY: Anterior circulation: Intracranial internal carotid arteries are normal in size and flow. The flow within the paired anterior cerebral arteries is normal and symmetric. The flow within the middle cerebral arteries is normal and symmetric. The anterior communicating artery is seen. No aneurysms are seen. Posterior circulation: Visualized portions of the vertebral arteries demonstrate normal caliber, and join to form a normal appearing basilar artery. Flow within the posterior cerebral arteries is normal and symmetric. No aneurysms are seen. NECK CT ANGIOGRAPHY: Carotid system: The great vessels demonstrate a conventional anatomy as they arise from the aortic arch. The origins of the common carotid arteries appear patent. The common carotid arteries demonstrate normal caliber and courses. The bifurcation regions are both widely patent. The internal carotid arteries demonstrate normal calibers and courses. Posterior circulation: The origins of the vertebral arteries both appear widely patent. The more superior extracranial portions of both vertebral arteries also demonstrate normal courses and calibers. They join to form a normal appearing basilar artery. Soft tissues: Visualized neck soft tissues demonstrate no suspicious abnormalities. Question small pulmonary embolus, left basilar pulmonary artery, most inferior image, image 333 of series 4. There is also question pulmonary embolus in the lingular pulmonary artery. Reference image 330 of series 4. Bones: No suspicious bony lesions. Visualized cervical spine appears normally aligned. IMPRESSION: No significant intracranial arterial abnormality is seen. No significant abnormality is seen within the arteries of the neck. Question small peripheral left-sided pulmonary emboli Comment: Findings were discussed with Dr. Hammond at the time of study dictation on from 03/18/[address] scan - chest: Radiologist's Impression: PROCEDURE: CT ANGIO CHEST PE PROTOCOL INDICATIONS: Possible PE seen on CTA of the neck TECHNIQUE: After the administration of intravenous contrast, 2 mm thick sections acquired from the pulmonary apices to the posterior costophrenic angles. 3-dimensional maximum intensity projection (MIP) coronal and sagittal reformats were then acquired through the thorax. For radiation dose reduction, the following was used: automated exposure control, adjustment of mA and/or kV according to patient size. COMPARISON: [facility], CT, CT ANGIO HEAD AND NECK, 03/18/2024, 12:53. FINDINGS: Image quality: Diagnostic. Pulmonary arteries: Pulmonary arteries are normal in size, and demonstrate no intraluminal filling defects to suggest central pulmonary embolism. Specifically, the questionable areas of pulmonary artery clot seen on the CTA of the head and neck do not represent pulmonary emboli. Lower Neck: No enlarged lymph nodes. Thyroid: No thyroid nodules which require sonographic follow up, per consensus guidelines. Axillae: No enlarged lymph nodes. Chest Wall: Unremarkable. Bones: Unremarkable. Lungs and Pleura: No pneumothorax or pleural effusions. No consolidation or suspicious nodules. Heart: Heart size is normal. No pericardial effusion. Thoracic Vessels: No aortic aneurysm. Mediastinum and [place]: No enlarged lymph nodes. Esophagus: No wall thickening. Small hiatal hernia. Upper Abdomen: Visualized upper abdomen solid organs and bowel loops appear normal. IMPRESSION: No pulmonary embolus. No acute pulmonary process. Comment: Findings were discussed with Dr. Hammond at the time of study dictation. ECG Data Attestation: I personally reviewed and interpreted this ECG as follows: Interpretation: Sinus rhythm Ventricular rate is 77 Normal axis Normal QRS Nonspecific ST T wave changes MDM Narrative Medical decision making narrative: Initial NIH score is 0. Was significantly hypertensive which did improve with IV medication. Head CT and CTA of the head and neck show no acute pathology although there was some concern about potentially a pulmonary embolus noted on the CTA of the head and neck. Subsequent PE study was negative. Patient's initial presentation was tingling of the tongue. Low suspicion for CVA/TIA. Considered potentially hypertensive emergency however she has only a very moderate improvement of blood pressure with medications and her symptoms now are improving. She was given a night dose of her hypertensive medication. She does admit that she was fairly anxious at the onset of the symptoms and that potentially could be source of her symptoms as well. Will discharge patient home with instructions to take her blood pressure at home and continue to take her medications contact your primary care doctor for follow-up. She was given return precautions. She expressed understanding and agreement with plan. Discharge Plan Departure Patient Disposition: Home Clinical Impression: Facial paresthesia, Hypertension Instructions: High Blood Pressure Activity Restrictions/Additional Instructions: I do recommend that you continue to take all of your blood pressure medications as directed and take your blood pressure at home and record the values. Contact your primary care doctor for a follow-up. Return to the emergency department for new or worsening symptoms. Prescriptions: No Action CA PANTOTHENATE/FOLIC ACID/VIT (MULTIVITAMIN) 1 tab PO QDAY Qty: 0 aspirin 81 MG tablet,delayed release (DR/EC) 81 mg PO QDAY Qty: 0 [GLUTATHIONE] 500 mg PO QDAY Qty: 0 losartan 50 mg tablet 50 mg PO DAILY Qty: 90 0RF hydrochlorothiazide 12.5 mg tablet 12.5 mg PO DAILY Qty: 90 0RF ascorbate calcium (vitamin C) 500 mg tablet 500 mg PO DAILY PRN Ocuvite 1 cap PO DAILY losartan-hydrochlorothiazide [Hyzaar] 50-12.5 mg tablet 1 tab PO QDAY Qty: 90 3RF pravastatin 40 mg tablet 40 mg PO HS Qty: 90 3RF Referrals: Drea Leroy PA-C [Primary Care Provider] - Stand Alone Forms: Patient Portal/API
[2024-03-18 13:13] LABS: PTT Partial Thromboplastin Tim 39 SECONDS (25.1-36.5)
[2024-03-18 13:17] LABS: HEMOLYSIS < 15 (0-50)
[2024-03-18 13:25] LABS: Alanine Aminotransferase 23 IU/L (<35); Albumin 4.6 g/dL (3.5-5.0); Albumin Globulin Ratio 1.5 (1.0-2.8); Alkaline Phosphatase 75 U/L (38-126); Aspartate Aminotransferase 26 IU/L (14-36); BUN Creatinine Ratio 25.6 (6-22); Bilirubin Total 0.9 mg/dL (0.2-1.3); Blood Urea Nitrogen 21 mg/dL (7-17); Calcium 9.4 mg/dL (8.4-10.2); Carbon Dioxide 22 mmol/L (22-32); Chloride 106 mmol/L (98-107); Creatine Kinase 94 U/L (30-135); Estimated Glomerular Filt Rate > 60 mL/min (>60); Ethanol (ETOH) < 10 mg/dL; Glucose 154 mg/dL (80-110); Lipase 154 U/L (23-300); Magnesium 2.2 mg/dL (1.6-2.3); Potassium 3.5 mmol/L (3.4-5.1); Sodium 139 mmol/L (137-145); Total Protein 7.6 g/dL (6.3-8.2)
[2024-03-18 13:37] LABS: Troponin I < 0.012 ng/mL (0.01-0.034)
[2024-03-18 15:03] LABS: Bacteria Urine None Seen; Culture Indicated Urine Cult Not Indicated; RBC Urine None Seen (0-5/HPF); Squamous Epithelial Cell Urine None Seen (0-5/HPF); Urine Volume 10mL (spun); WBC Urine 0-1/HPF (0-5/HPF)
--- NOTE | 2024-03-18 16:06 | DI.CT.S_ITS ---
PROCEDURE: CT ANGIO CHEST PE PROTOCOL INDICATIONS: Possible PE seen on CTA of the neck TECHNIQUE: After the administration of intravenous contrast, 2 mm thick sections acquired from the pulmonary apices to the posterior costophrenic angles. 3-dimensional maximum intensity projection (MIP) coronal and sagittal reformats were then acquired through the thorax. For radiation dose reduction, the following was used: automated exposure control, adjustment of mA and/or kV according to patient size. COMPARISON: [facility], CT, CT ANGIO HEAD AND NECK, 03/18/2024, 12:53. FINDINGS: Image quality: Diagnostic. Pulmonary arteries: Pulmonary arteries are normal in size, and demonstrate no intraluminal filling defects to suggest central pulmonary embolism. Specifically, the questionable areas of pulmonary artery clot seen on the CTA of the head and neck do not represent pulmonary emboli. Lower Neck: No enlarged lymph nodes. Thyroid: No thyroid nodules which require sonographic follow up, per consensus guidelines. Axillae: No enlarged lymph nodes. Chest Wall: Unremarkable. Bones: Unremarkable. Lungs and Pleura: No pneumothorax or pleural effusions. No consolidation or suspicious nodules. Heart: Heart size is normal. No pericardial effusion. Thoracic Vessels: No aortic aneurysm. Mediastinum and Adela: No enlarged lymph nodes. Esophagus: No wall thickening. Small hiatal hernia. Upper Abdomen: Visualized upper abdomen solid organs and bowel loops appear normal. IMPRESSION: No pulmonary embolus. No acute pulmonary process. Comment: Findings were discussed with Dr. Hammond at the time of study dictation. Dictated by: Tahir Romero M.D. on 03/18/2024 at 17:43 Approved by: Tahir Romero M.D. on 03/18/2024 at 17:48
[2024-03-18] MEDS: ACETAMINOPHEN 325 MG TABLET 650 MG PO (16:42)
[2024-03-18] MEDS: AMLODIPINE 5 MG TABLET 10 MG PO (18:41)
== END 2024-03-18 18:50 | disposition home or self-care (01) ==
PROVIDERS: Emergency Provider Emergency Medicine; PCP Physician Assistant
DX: R20.2 Paresthesia of skin (principal); I10 Essential (primary) hypertension; Z79.82 Long term (current) use of aspirin
CPT/HCPCS: 36415; 70450; 70496; 70498; 71275; 80053; 80320; 81003; 81015; 82550; 82962; 83690; 83735; 84484; 85025; 85610; 85730; 93005; 93010; 96361; 96374; 99284; 99285; Q9967